=== PATIENT | male | born 1985 | race Caucasian/White ===

== ENCOUNTER 2017-09-21 13:12 | Emergency (ER) | payer OTHER, BC ==
[~2017-09-21] VITALS: Ht 177.8 cm; Wt 95.5 kg
[~2017-09-21 13:12] MED LIST: CLEOCIN HC150 MG/CAP PO; FLEXERIL 1010 MG/TAB PO; NAPROSYN500 MG PO; NO HOME MEDICATIONS
[2017-09-21 13:13] VITALS: BP 130/80; TEMP 97.8
[2017-09-21 15:04] VITALS: PULSE 90
[2017-09-21] MEDS ORDERED: NORCO 325 MG-51 TAB PO (15:04)
== END 2017-09-21 15:04 | disposition home or self-care (01) ==
LOC: COL.ER 13:12
DX: S92.322A Displaced fracture of second metatarsal bone, left foot, initial encounter for closed fracture (principal); V03.10XA Pedestrian on foot injured in collision with car, pick-up truck or van in traffic accident, initial encounter
CPT/HCPCS: J1885

== ENCOUNTER 2022-05-22 19:41 | Emergency (ER) | payer OTHER, BC ==
[~2022-05-22] VITALS: Ht 180.3 cm; Wt 100.0 kg
[~2022-05-22 19:41] MED LIST changes: +NORCO 325 MG-51 TAB PO
[2022-05-22 19:45] VITALS: TEMP 97.1
[2022-05-22 21:06] VITALS: BP 154/80; PULSE 90
== END 2022-05-22 21:06 | disposition home or self-care (01) ==
LOC: COL.ER 19:41
DX: T24.202A Burn of second degree of unspecified site of left lower limb, except ankle and foot, initial encounter (principal); X08.8XXA Exposure to other specified smoke, fire and flames, initial encounter